=== PATIENT | female | born 1995 | race African-American/Black ===

== ENCOUNTER 2016-12-31 22:13 | Emergency (ER) | payer SELFPAY ==
[~2016-12-31] VITALS: Ht 172.7 cm; Wt 64.0 kg
[2017-01-01] MEDS ORDERED: KETOROLAC 60MG/2ML VIAL IM ONE (01:15)
[2017-01-01 01:22] LABS: CLARITY URINE CLEAR (CLEAR); COLOR URINE YELLOW (YELLOW); GLUCOSE URINE NEGATIVE (NEGATIVE); KETONES URINE TRACE (NEGATIVE); LEUKOCYTE ESTERASE URINE NEGATIVE (NEGATIVE); NITRITE URINE NEGATIVE (NEGATIVE); OCCULT BLOOD URINE NEGATIVE (NEGATIVE); PH URINE 6.5 (4.5-8.0); PROTEIN URINE NEGATIVE (NEGATIVE)
[2017-01-01 01:29] LABS: BASOPHILS % 0.4 % (0.0-2.0); EOSINOPHILS % 3.2 % (0.0-5.0); HEMATOCRIT. 32.4 % (36.0-48.0); HEMOGLOBIN. 10.5 g/dL (12.0-16.0); LYMPHOCYTES % 24.1 % (20.0-50.0); MEAN CORPUSCULAR HEMOGLOBIN 27.5 pg (28.0-32.0); MEAN CORPUSCULAR HGB CONC 32.5 g/dL (31.0-37.0); MEAN CORPUSCULAR VOLUME 84.8 fL (81.0-99.0); MEAN PLATELET VOLUME 7.6 fl (7.4-10.4); MONOCYTES % 9.4 % (2.0-8.0); NEUTROPHILS % 62.9 % (40.0-76.0); PLATELET 351 x1000/uL (130-400); RED BLOOD CELL COUNT 3.82 mill/uL (4.2-5.4); RED CELL DISTRIBUTION WIDTH 13.4 % (11.6-14.6); WHITE BLOOD COUNT 9.2 x1000/uL (4.5-11.0)
[2017-01-01 01:36] LABS: CHLORIDE 102 mEq/L (98-107); INDEX HEMOLYSI 1 (1-3); INDEX ICTERIC 1 (1-4); INDEX LIPEMIC 1 (1-3)
[2017-01-01 01:37] LABS: HCG SCREEN NEGATIVE
[2017-01-01 01:44] LABS: ALANINE AMINOTRANSFERASE 16 IU/L (13-61); ALBUMIN 3.1 g/dL (3.4-5.0); ANION GAP 8; CALCIUM 8.9 mg/dL (8.5-10.1); CARBON DIOXIDE 32 mEq/L (21-32); LIPASE 93 IU/L (73-393); UREA NITROGEN BLOOD 12 mg/dL (7-21); eGFR > 60 mL/min (>60)
[2017-01-01 06:06] VITALS: BP 108/68
== END 2017-01-01 07:40 | disposition home or self-care (01) ==
LOC: ER 22:13
DX: M94.0 Chondrocostal junction syndrome [Tietze] (principal); N83.209 Unspecified ovarian cyst, unspecified side
CPT/HCPCS: 36415; 76830; 76856; 80053; 81003; 83690; 84702; 84703; 85025; 96372; 99285; J1885